=== PATIENT | female | born 1940 | race Caucasian/White ===

== ENCOUNTER 2016-09-02 12:06 | Outpatient (CLI) ==
[2016-09-02 12:35] VITALS: BMI 38.9
== END 2016-09-02 12:07 ==
LOC: AMBL 12:06
PROVIDERS: ATTEND Emergency Medicine
DX: S01.81XA Laceration without foreign body of other part of head, initial encounter (principal); W01.0XXA Fall on same level from slipping, tripping and stumbling without subsequent striking against object, initial encounter

== ENCOUNTER 2016-09-02 12:16 | Emergency (ER) | payer OTHER ==
[2016-09-02 12:35] VITALS: BP 180/116; TEMP 97.7; BMI 38.9
--- NOTE | 2016-09-02 12:41 | ED.PDOC ---
General ED Provider: Dr. PONCE ORONA JR Chief Complaint: Chin Laceration Stated Complaint: had been to br and stubbed toe causing fall-struck chin onto floor--no loc with fall--is alert able to recall event--bleeding controlled at present--has marked edema to both lower legs--has broken lower dentures due to fall. [ End ]30 minutes ago 97.7 103 20 100 180/116 7/10 Time Seen by Physician: 12:39 Mode of Arrival: Stretcher Information Source: Patient Exam Limitations: No limitations Nursing and Triage Documentation Reviewed and Agree: No Review of Systems - Review Of Systems Constitutional: Reports: No symptoms Eyes: Reports: No symptoms Ears, Nose, Mouth, Throat: Reports: No symptoms Respiratory: Reports: No symptoms Cardiac: Reports: No symptoms GI: Reports: No symptoms : Reports: No symptoms Musculoskeletal: Reports: No symptoms Skin: Reports: Bruising, Lesions Neurological: Reports: No symptoms Endocrine: Reports: No symptoms Hematologic/Lymphatic: Reports: No symptoms All Other Systems: Other Past Medical History - Past Medical History Endocrine: Reports: DM 2, Dyslipidemia Cardiovascular: Reports: Hypertension, CHF Respiratory: Reports: None Hematological: Reports: None Gastrointestinal: Reports: GERD Genitourinary: Reports: None Neuro/Psych: Reports: Seizure Musculoskeletal: Reports: None Cancer: Reports: Unknown Last Menstrual Period: hysterectomy - Surgical History General Surgical History: Reports: Hysterectomy - Family History Family History: Reports: Unknown - Social History Smoking Status: Never smoker Hx Substance Use: No Alcohol Screening: None - Immunizations Tetanus Shot up to Date: No Physical Exam - Physical Exam Appearance: Well-appearing Pain Distress: Mild Eyes: BELTRAN Musculoskeletal: No edema (contusion left ring finger) Skin: Warm, Dry, Normal color (laceration left lateral chin) Procedures - Laceration/Wound Repair No standard instances Wound Description: Linear, Irregular Wound Length (cm): 1 Wound Explored: Clean Wound Irrigated: Yes Wound Prep: Hibiclens Anesthesia: Lidocaine Wound Repaired With: Sutures Suture Size and Type: 5-0 Number of Sutures: 2 Layer Closure?: No Sterile Dressing Applied?: Yes Splint Applied?: No Sling Applied?: No Critical Care Note - Critical Care Note Total Time (mins): 0 Course - Course Hematology/Chemistry: 09/02/16 13:00 09/02/16 13:00 Orders, Labs, Meds: Lab Review 09/02/16 13:00 WBC 6.54 RBC 5.05 Hgb 15.1 Hct 47.3 H MCV 93.7 MCH 29.9 MCHC 31.9 RDW Coeff of Flor 13.2 Plt Count 194 Immature Gran % (Auto) 0.3 Neut % (Auto) 67.2 Lymph % (Auto) 21.7 [place] % (Auto) 9.0 Eos % (Auto) 1.5 Baso % (Auto) 0.3 Immature Gran # (Auto) 0.0 Neut # 4.4 Lymph # 1.4 [place] # 0.6 Eos # 0.1 Baso # 0.0 Sodium 139 Potassium 4.2 Chloride 102 Carbon Dioxide 28 Anion Gap 13.2 BUN 18 Creatinine 1.02 Estimated GFR (MDRD) 53.00 BUN/Creatinine Ratio 17.64 Glucose 177 H Calcium 10.4 H Total Bilirubin 0.75 AST 21 ALT 18 Alkaline Phosphatase 89 Total Protein 6.8 Albumin 3.3 L Globulin 3.5 Albumin/Globulin Ratio 0.94 Digoxin < 0.30 L Orders Category Date Time Status CBC W/ AUTO DIFF Stat LAB 09/02/16 13:00 Completed CMP [COMPREHENSIVE METABOLIC PANEL] Stat LAB 09/02/16 13:00 Completed DIGOXIN Stat LAB 09/02/16 13:00 Completed Diphth,Pertuss(Acell),Tet Vac [Boostrix] MEDS 09/02/16 14:19 Discontinued 0.5 ml IM .ONCE ONE Lidocaine HCl/Pf [Lidocaine 1 % Amp 5 ml (Sutures)] MEDS 09/02/16 13:21 Discontinued 5 ml SUBCUT ONCE STA Lidocaine HCl/Pf [Lidocaine 1 % Amp 5 ml (Sutures)] MEDS 09/02/16 13:22 Discontinued 5 ml SUBCUT ONCE STA CT CERVICAL SPINE W/O CONTRAST Stat RADS 09/02/16 12:[address] HEAD W/O CONTRAST Stat RADS 09/02/16 12:40 Completed Medications Discontinued Medications Generic Name Dose Route Start Last Admin Trade Name Freq PRN Reason Stop Dose Admin Diphtheria/Pertussis/Tetanus Vacc 0.5 ml 09/02/16 14:19 09/02/16 14:25 Boostrix IM 09/02/16 14:20 0.5 ml .ONCE ONE Administration Lidocaine HCl 5 ml 09/02/16 13:21 09/02/16 13:32 Lidocaine 1 % Amp 5 Ml (Sutures) SUBCUT 09/02/16 13:22 5 ml ONCE STA Administration Lidocaine HCl 5 ml 09/02/16 13:22 09/02/16 13:33 Lidocaine 1 % Amp 5 Ml (Sutures) SUBCUT 09/02/16 13:23 Not Given ONCE STA Vital Signs: Temp Pulse Resp BP Pulse Ox 09/02/16 12:16 97.7 F 103 H 20 180/116 H 100 Departure - Departure Time of Disposition: 14:21 Disposition: HOME SELF-CARE Discharge Problem: Facial laceration, Head injury due to trauma Instructions: Head Injury (ED), Facial Laceration (ED) Condition: Good Pt referred to PMD for follow-up: Yes Additional Instructions: call PMD for follow up Please call your Family Physician as soon as possible to schedule a follow-up appointment. note digoxin level is low no medication changes made in ER sutures out in 7 days check hourly while awake return if vomiting headache mental changes or fever over 101.0 Allergies/Adverse Reactions: Allergies Penicillins Adverse Reaction (Verified 09/02/16 12:29) Sulfa (Sulfonamide Antibiotics) Adverse Reaction (Verified 09/02/16 12:29)
[2016-09-02 13:08] LABS: BASOPHILS % (AUTO) 0.3 % (0.0-3.0); EOSINOPHILS # (AUTO) 0.1 K/ul (0.0-0.7); EOSINOPHILS % (AUTO) 1.5 % (0.0-7.0); HEMATOCRIT 47.3 % (37.0-47.0); HEMOGLOBIN 15.1 g/dl (12.0-16.0); IMMATURE GRANULOCYTE % (AUTO) 0.3 % (0.0-5.0); LYMPHOCYTES # (AUTO) 1.4 K/uL (0.60-3.4); LYMPHOCYTES % (AUTO) 21.7 (10.0-50.0); MEAN CORPUSCULAR HEMOGLOBIN 29.9 pg (27.0-31.0); MEAN CORPUSCULAR HGB CONC 31.9 (31.8-35.4); MEAN CORPUSCULAR VOLUME 93.7 fl (81.0-99.0); MONOCYTES # (AUTO) 0.6 K/uL (0.4-2.0); NEUTROPHILS # (AUTO) 4.4 K/ul (2.0-6.9); NEUTROPHILS % (AUTO) 67.2; PLATELET COUNT 194 10^3/uL (140-440); RED BLOOD COUNT 5.05 10^6/ul (4.20-5.40); WHITE BLOOD COUNT 6.54 K/ul (4.6-10.2)
[2016-09-02] MEDS ORDERED: LIDOCAINE 1 % AMP 5 ML (SUTURES) SUBCUT STA ×2 (13:21→13:22)
[2016-09-02 13:33] LABS: ALANINE AMINOTRANSFERASE 18 U/L (12-78); ALBUMIN 3.3 g/dL (3.4-5.0); ALBUMIN/GLOBULIN RATIO 0.94; ALKALINE PHOSPHATASE 89 U/L (53-141); ANION GAP 13.2; ASPARTATE AMINO TRANSFERASE 21 U/L (15-37); BILIRUBIN,TOTAL 0.75 mg/dL (0.00-1.20); BLOOD UREA NITROGEN 18 mg/dL (7-18); BUN/CREATININE RATIO 17.64; CALCIUM 10.4 mg/dL (8.2-10.2); CARBON DIOXIDE 28 mmol/L (23-31); CHLORIDE 102 mmol/L (98-107); CREATININE 1.02 mg/dL (0.60-1.30); GLUCOSE 177 mg/dL (82-115); POTASSIUM 4.2 mmol/L (3.5-5.10); SODIUM 139 mmol/L (136-145); TOTAL PROTEIN 6.8 g/dL (5.8-8.1)
--- NOTE | 2016-09-02 13:48 | CT ---
EXAM: CT BRAIN HISTORY: Fall, facial injury TECHNIQUE: CT brain without intravenous contrast. 5-mm axial sections with Reformations. COMPARISON: None FINDINGS: Generalized age-related atrophy. Mild ventriculomegaly likely in part compensatory to the atrophy. Moderate chronic microvascular ischemic change is suggested. There is a tiny sub-centimeter area of low attenuation in the left sub insular space probably representing a focal, chronic infarction or p rominent perivascular space. Low attenuation within the eriberto is likely related to chronic small ves dorinda disease. There is no evidence of recent large vessel distribution ischemic infarction. No subd ural hematoma is identified. No fracture. Visualized paranasal sinuses are clear. IMPRESSION: No acute intracranial process or injury. No fracture identified.
--- NOTE | 2016-09-02 13:49 | CT ---
EXAM: CT cervical spine without contrast. HISTORY: Fall with trauma to chin and broken dental plate COMPARISON: Same date CT head TECHNIQUE: Serial axial images of the cervical spine were obtained from the skull base through the lung apices without contrast. These were viewed in multiple planes. FINDINGS: Vertebral bodies demonstrate normal height, disc space and alignment. There is scattered generalized bone demineralization. There is mild disc space narrowing at C5-C7 with small anterior posterior disc osteophytes. There is minimal facet arthropathy. 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 The odontoid process is unremarkable. The soft tissues are unremarka ble. IMPRESSION: There is no acute compression fracture or subluxation of the cervical spine. 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
[2016-09-02 13:52] LABS: DIGOXIN < 0.30 ng/mL (1.00-2.00)
[2016-09-02] MEDS ORDERED: BOOSTRIX IM ONE (14:19)
== END 2016-09-02 14:35 | disposition home or self-care (01) ==
LOC: ED 12:16
DX: S01.81XA Laceration without foreign body of other part of head, initial encounter (principal); E11.9 Type 2 diabetes mellitus without complications; I10 Essential (primary) hypertension; I50.9 Heart failure, unspecified; E78.5 Hyperlipidemia, unspecified; W19.XXXA Unspecified fall, initial encounter
CPT/HCPCS: 36415; 80053; 80162; 85025; 90471; 99283

== ENCOUNTER 2017-02-05 01:18 | Outpatient (CLI) | END 2017-02-05 01:19 | disposition home or self-care (01) | LOC: AMBL 01:18 | PROVIDERS: ATTEND Internal Medicine Geriatric Medicine | DX: R53.1 Weakness (principal); M25.561 Pain in right knee; W06.XXXA Fall from bed, initial encounter ==

== ENCOUNTER 2017-04-20 10:31 | Outpatient (CLI) | END 2017-04-20 10:32 | disposition home or self-care (01) | LOC: AMBL 10:31 | PROVIDERS: ATTEND Emergency Medicine | DX: Z04.3 Encounter for examination and observation following other accident (principal); W07.XXXA Fall from chair, initial encounter ==

== ENCOUNTER 2018-01-06 15:19 | Outpatient (CLI) | END 2018-01-06 15:35 | disposition short-term general hospital (02) | LOC: AMBL 15:19 | PROVIDERS: ATTEND Emergency Medicine | DX: R53.1 Weakness (principal); M25.50 Pain in unspecified joint; I48.91 Unspecified atrial fibrillation; W19.XXXA Unspecified fall, initial encounter ==

== ENCOUNTER 2018-02-12 08:11 | Outpatient (CLI) | payer OTHER | END 2018-02-12 08:27 | disposition short-term general hospital (02) | LOC: AMBL 08:11 | PROVIDERS: ATTEND Emergency Medicine | DX: R29.898 Other symptoms and signs involving the musculoskeletal system (principal); R26.89 Other abnormalities of gait and mobility; R60.0 Localized edema; I48.91 Unspecified atrial fibrillation; Z86.73 Personal history of transient ischemic attack (TIA), and cerebral infarction without residual deficits ==

== ENCOUNTER 2018-03-22 07:13 | Inpatient (IN) | payer OTHER ==
--- NOTE | 2018-03-22 07:23 | ED.PDOC ---
General ED Provider: Dr. SAW BRADLEY Chief Complaint: Shortness of Air Stated Complaint: Sent by [facility] for evaluation of patient due to increased weakness , SOB and chest wheezing. ALSO chronic LE lymphedema which appears worsened. Patient states" Stefano not sure why I am Here-nurses just stated they were sending me to the ER Time Seen by Physician: 07:21 Mode of Arrival: Walk-In Information Source: Patient Exam Limitations: No limitations, Dementia Primary Care Provider: KITTY RAMSEY Nursing and Triage Documentation Reviewed and Agree: Yes Does patient meet sepsis criteria?: No System Inflammatory Response Syndrome: Not Applicable Sepsis Protocol: For patient's 13 years and over: Temp is 96.8 and below OR 101 and greater Pulse >90 BPM Resp >20/minute Acutely Altered Mental Status Are patient's symptoms suggestive of a new infection, such as: -Pneumonia -Skin, Soft Tissue -Endocarditis -UTI -Bone, Joint Infection -Implantable Device -Acute Abdominal Infection -Wound Infection -Meningitis -Blood Stream Catheter Infection -Unknown Respiratory Complaint Exam - Shortness of Air Complaint/Exam Symptoms Are: Still present Timing: Constant Initial Severity: Mild Current Severity: Mild Character: Reports: Dyspnea at rest, Dyspnea on exertion Aggravating: Reports: Movement, Recumbent position Alleviating: Reports: Upright position Associated Signs and Symptoms: Reports: Wheezing Related History: Reports: Similar episode History of Healthcare-Acquired Pneumonia: No, Lives at assisted Pulmonary Embolism Risk Factors: Reports: None Cardiac Risk Factors: Reports: CHF Pseudomonas Risk Factors: Reports: None Tuberculosis Risk Factors: Reports: None Home Oxygen Use: No Recent Stress Test: No Recent Echo/LV Function: No Respiratory Distress: None Stridor Present: No Tracheal Deviation: No Subcutaneous Emphysema: No Accessory Muscle Use: No Retractions: Not Present Diminished Breath Sounds: Yes Prolonged Expiratory Phase: No Unable to Speak Full Sentences: No Fatigue: Yes Leg Swelling: Yes Suni's Sign Present: No Grunting Respirations: No Kussmaul Respirations: No Differential Diagnoses: CHF, Pulmonary Edema, Other (Atrial Fib ) Review of Systems - Review Of Systems Constitutional: Reports: No symptoms Eyes: Reports: No symptoms Ears, Nose, Mouth, Throat: Reports: No symptoms Respiratory: Reports: No symptoms, Orthopnea, Short of air, Wheezing Cardiac: Reports: No symptoms GI: Reports: No symptoms : Reports: No symptoms Musculoskeletal: Reports: No symptoms Skin: Reports: No symptoms Neurological: Reports: No symptoms Endocrine: Reports: No symptoms Hematologic/Lymphatic: Reports: No symptoms All Other Systems: Reviewed and Negative Past Medical History - Past Medical History Endocrine: Reports: DM 2, Dyslipidemia Cardiovascular: Reports: Hypertension, CHF Respiratory: Reports: None Hematological: Reports: None Gastrointestinal: Reports: GERD Genitourinary: Reports: None Neuro/Psych: Reports: Seizure Musculoskeletal: Reports: None Cancer: Reports: Unknown - Surgical History General Surgical History: Reports: Hysterectomy - Family History Family History: Reports: Unknown - Social History Smoking Status: Never smoker Hx Substance Use: No Alcohol Screening: None Physical Exam - Physical Exam Appearance: Well-appearing, No pain distress, Well-nourished, Obese Ill-appearing: Mild Pain Distress: None Eyes: BELTRAN, EOMI, Conjunctiva clear ENT: Ears normal, Nose normal, Oropharynx normal Respiratory: Airway patent, Breath sounds clear, Breath sounds equal, Respirations nonlabored Cardiovascular: Pulses normal, No rub, No murmur, Irregular rhythm GI/: Soft, No masses, No Organomegaly, Tender (Mid abdomen and LUQ /no guarding or rebound), Bowel sounds hypoactive Musculoskeletal: Normal strength, ROM intact, No calf tenderness, Edema Skin: Warm, Dry, Normal color Neurological: Sensation intact, Motor intact, Reflexes intact, Cranial nerves intact, Alert, Oriented (but slightly confused) Psychiatric: Affect appropriate, Mood appropriate Interpretation - Radiology Interpretation Radiology Interpretation By: Radiologist Exam Interpreted: CXR, CT Scan (Ventral hernia with loop of transverse colon in hernia but not obstructed) Xray Comments: Interstitial edema - EKG Interpretation Time of EKG #1: 07:40 Rhythm: Other (atrial fib) Re-Evaluation - Re-Evaluation Time of Re-Evaluation: 15:00 Status: Improved Vital Signs Stable: Yes (Bell cath inserted to monitor output) Appearance: NAD Lungs: Other (few crackles and wheezes) Skin: Warm and Dry CV: Other (Irreg irreg rate and rhythm) Critical Care Note - Critical Care Note Total Time (mins): 0 Course - Course Hematology/Chemistry: 03/22/18 07:45 03/22/18 07:45 Orders, Labs, Meds: Lab Review 03/22/18 03/22/18 03/22/18 07:45 07:45 07:45 WBC 6.00 RBC 3.45 L Hgb 10.6 L Hct 33.2 L MCV 96.2 MCH 30.7 MCHC 31.9 RDW Coeff of Flor 13.7 Plt Count 201 Immature Gran % (Auto) 0.3 Neut % (Auto) 66.9 Lymph % (Auto) 16.3 [place] % (Auto) 14.7 H Eos % (Auto) 1.5 Baso % (Auto) 0.3 Immature Gran # (Auto) 0.0 Neut # (Auto) 4.0 Lymph # (Auto) 1.0 [place] # (Auto) 0.9 Eos # (Auto) 0.1 Baso # (Auto) 0.0 Sodium 141 Potassium 4.3 Chloride 103 Carbon Dioxide 29 Anion Gap 13.3 BUN 30 H Creatinine 1.45 H Estimated GFR (MDRD) 35.00 BUN/Creatinine Ratio 20.68 Glucose 145 H Lactic Acid Calcium 9.6 Total Bilirubin 1.1 AST 17 ALT 17 Alkaline Phosphatase 89 Troponin I 0.0300 B-Natriuretic Peptide 278 H Total Protein 6.4 Albumin 2.5 L Globulin 3.9 Albumin/Globulin Ratio 0.64 Urine Color Urine Clarity Urine pH Ur Specific [place] Urine Protein Urine Glucose (UA) Urine Ketones Urine Blood Urine Nitrite Urine Bilirubin Urine Urobilinogen Ur Leukocyte Esterase Urine Microscopic WBC Ur Squamous Epith Cells Urine Bacteria 03/22/18 03/22/18 07:45 09:05 WBC RBC Hgb Hct MCV MCH MCHC RDW Coeff of Flor Plt Count Immature Gran % (Auto) Neut % (Auto) Lymph % (Auto) [place] % (Auto) Eos % (Auto) Baso % (Auto) Immature Gran # (Auto) Neut # (Auto) Lymph # (Auto) [place] # (Auto) Eos # (Auto) Baso # (Auto) Sodium Potassium Chloride Carbon Dioxide Anion Gap BUN Creatinine Estimated GFR (MDRD) BUN/Creatinine Ratio Glucose Lactic Acid 8.3 Calcium Total Bilirubin AST ALT Alkaline Phosphatase Troponin I B-Natriuretic Peptide Total Protein Albumin Globulin Albumin/Globulin Ratio Urine Color Yellow Urine Clarity Clear Urine pH 7.0 Ur Specific [place] 1.015 Urine Protein Negative Urine Glucose (UA) Negative Urine Ketones Negative Urine Blood Negative Urine Nitrite Negative Urine Bilirubin Negative Urine Urobilinogen 2.0 Ur Leukocyte Esterase Trace Urine Microscopic WBC 5-10 Ur Squamous Epith Cells 5-10 Urine Bacteria 2+ Orders Category Date Time Status ADMIT PATIENT INPATIENT .TO MEDSURG (MONITORED BED) ADMISSION 03/22/18 09: 55 Active EKG-(ED ONLY) Stat CARDIO 03/22/18 07:34 Completed OXYGEN Routine CARDIO 03/22/18 09:44 Ordered ACTIVITY .BR with BRP CARE 03/22/18 09:45 Active BLOOD GLUCOSE MONITORING 0630,1100,1700,2100 CARE 03/22/18 09:46 Active CATHETER INSERTION AND CARE Q8HR CARE 03/22/18 09:44 Active INTAKE & OUTPUT Q8HR CARE 03/22/18 09:44 Active REMINDER: Ask MD to d/c ronald DAILY CARE 03/22/18 09:45 Active TELEMETRY MONITORING TELE CARE 03/22/18 09:56 Active VITAL SIGNS Q4HR CARE 03/22/18 09:44 Active 2 GRAM SODIUM DIET DIETARY 03/22/18 Lunch Ordered BLOOD CULTURE (ED ONLY) Stat LAB 03/22/18 07:45 Received BNP [B-TYPE NATRIURETIC PEPTIDE] Stat LAB 03/22/18 07:45 Completed CBC W/ AUTO DIFF DAILY@0600 LAB 03/23/18 06:00 Ordered CBC W/ AUTO DIFF DAILY@0600 LAB 03/24/18 06:00 Ordered CBC W/ AUTO DIFF Stat LAB 03/22/18 07:45 Completed CMP [COMPREHENSIVE METABOLIC PANEL] Stat LAB 03/22/18 07:45 Completed COMPREHENSIVE METABOLIC PANEL DAILY@0600 LAB 03/23/18 06:00 Ordered COMPREHENSIVE METABOLIC PANEL DAILY@0600 LAB 03/24/18 06:00 Ordered LACTIC ACID Stat LAB 03/22/18 07:45 Completed TROPONIN I Stat LAB 03/22/18 07:45 Completed UA [URINALYSIS C & S IF INDICATED] Stat LAB 03/22/18 09:05 Completed URINE CULTURE Stat LAB 03/22/18 09:05 Received Furosemide [Lasix] MEDS 03/22/18 08:20 Discontinued 20 mg IVP ONCE STA RESUSCITATION STATUS Routine OTHERS 03/22/18 09:44 Ordered CHEST, 1V AP ONLY Stat RADS 03/22/18 07:[address] ABDOMEN/PELVIS WO CONTRAST Stat RADS 03/22/18 08:22 Completed Medications Discontinued Medications Generic Name Dose Route Start Last Admin Trade Name Freq PRN Reason Stop Dose Admin Furosemide 20 mg 03/22/18 08:20 03/22/18 09:01 Lasix IVP 03/22/18 08:21 20 mg ONCE STA Administration Vital Signs: Temp Pulse Resp BP Pulse Ox 03/22/18 07:14 98.8 F 81 20 152/80 H 93 L Departure - Departure Time of Disposition: 08:30 Disposition: ADMITTED INPATIENT Discharge Problem: CHF (congestive heart failure), Atrial fibrillation, Ventral hernia Condition: Fair Pt referred to PMD for follow-up: Yes (Dr Abdul) IPMP verified?: No Allergies/Adverse Reactions: Allergies Penicillins Adverse Reaction (Verified 03/22/18 07:28) Sulfa (Sulfonamide Antibiotics) Adverse Reaction (Verified 03/22/18 07:28) Home Medications: Ambulatory Orders Alendronate Sodium 70 mg PO WEEKLY 03/22/18 Amantadine HCl [Amantadine] 100 mg PO BID 03/22/18 Aspirin [Adult Low Dose Aspirin EC] 81 mg PO DAILY 03/22/18 Bumetanide 2 mg PO DAILY 03/22/18 Citalopram Hydrobromide [Celexa] 20 mg PO DAILY 03/22/18 Digoxin [Digox] 125 mcg PO DAILY 03/22/18 Felodipine [Felodipine ER] 5 mg PO DAILY 03/22/18 Gabapentin 100 mg PO TID 03/22/18 Hydrocodone Bit/Acetaminophen [[place] 10-325] 1 each PO 12 03/22/18 Magnesium Hydroxide [Milk of Magnesia] 30 ml PO BID PRN 03/22/18 Memantine HCl [Namenda Xr] 28 mg PO DAILY 03/22/18 Metoprolol Tartrate 50 mg PO BID 03/22/18 Pantoprazole Sodium 40 mg PO DAILY 03/22/18 Potassium Chloride 10 meq PO DAILY 03/22/18 Rivaroxaban [Xarelto] 20 mg PO DAILY 03/22/18 Sennosides [Senna] 8.6 mg PO BID 03/22/18 Trazodone HCl 50 mg PO BEDTIME 03/22/18 Disposition Discussed With: Patient
[2018-03-22] MEDS ORDERED: LASIX IVP STA (08:20)
--- NOTE | 2018-03-22 08:33 | DI ---
EXAM: Single view of the chest. History: Dyspnea. Findings: Heart is enlarged. Mild interstitial edema. No pneumothorax and no significant pleural f luid. Atherosclerotic vascular calcifications. No acute osseous abnormalities. Impression: Cardiomegaly with mild interstitial edema
--- NOTE | 2018-03-22 09:04 | CT ---
EXAM: CT abdomen pelvis without contrast HISTORY: Palpable pain COMPARISON: Chest x-ray 2017 TECHNIQUE: Serial axial images of the abdomen pelvis were performed from the lung bases through the inferior pelvis without contrast. These were viewed in multiple planes. FINDINGS: Small right pleural effusion with adjacent consolidation in the right lower lobe. Cardiome diastinal silhouette is mildly enlarged. Evaluation is limited due to lack of contrast. The liver is unremarkable. The adrenal glands are nor mal. The kidneys are unremarkable. The spleen is normal. The pancreas is normal. The gallbladder is not visualized with minimal hazy ground-glass in the region of the gallbladder fossa. The stomach is normal The small bowel in the abdomen pelvis is unremarkable. The colon demonstrates a moderate amount of s tool in the distal colon. There is a small loop of transverse colon within a ventral fat-containing hernia with no definitive changes of obstruction. The hernia demonstrates no significant fluid colle ction or ground-glass. Urinary bladder is distended. The pelvic soft tissues are unremarkable. The osseous structures demonstrate mild degenerative disease of the spine. IMPRESSION: 1. There is a small loop of transverse colon within a ventral abdominal hernia that may represent th e source of patient's palpable pain. There is no definitive evidence of ground-glass, inflammation o r fluid at the site of the hernia. This does not cause obstruction. 2. Small right pleural effusion with adjacent consolidation suggestive of pneumonia. 3. Mild cardiomegaly.
[2018-03-22] MEDS ORDERED: LOVENOX SUBCUT SCH (10:00)
[2018-03-22 11:44] VITALS: BMI 39.2
[2018-03-22] MEDS: SODIUM CHLORIDE 1,000 ML IV SCH (13:56)
[2018-03-22] MEDS ORDERED: DECADRON 4 MG/ML SDV IVP STA (17:11)
[2018-03-22] MEDS: SYMMETREL PO SCH (20:28)
[2018-03-22] MEDS ORDERED: NON-FORMULARY MEDICATION (Amantadine Hcl [Amantadine] 100 MG) PO SCH (21:00)
[2018-03-22] MEDS: DUONEB NEB SCH (22:25)
[2018-03-23] MEDS: DUONEB NEB SCH ×3 (05:15→22:12)
[2018-03-23] MEDS ORDERED: LASIX IVP STA (08:11)
[2018-03-23] MEDS: SYMMETREL PO SCH ×2 (08:56→20:07)
[2018-03-23] MEDS: BUMEX PO SCH (08:56)
[2018-03-23] MEDS: LANOXIN PO SCH (08:56)
[2018-03-23] MEDS: ASPIRIN EC PO SCH (08:56)
[2018-03-23] MEDS: CELEXA PO SCH (08:56)
[2018-03-23] MEDS ORDERED: NON-FORMULARY MEDICATION (Bumetanide [Bumetanide] 2 MG) PO SCH (09:00)
--- NOTE | 2018-03-23 15:15 | HP ---
DATE OF SERVICE: 03/22/18 CHIEF COMPLAINT/HISTORY OF PRESENT ILLNESS: Binta Hines, who is a residential resident, been having problems with the lower extremity edema for which the patient been getting extra dose of Lasix but today morning residential staff noted that she has been more short of breath, wheezing, confusion at time, leg edema. The patient came to the emergency room and the patient was wheezing with exertion noted, aware of the surroundings. Respirations is shallow, afebrile. The patient was seen by Dr. Marcelino in the emergency room. WBC was normal, hgb 10, BUN 13, creatinine 1.45 , BNP is 278, urine negative for the nitrates and leukocyte esterase is trace. Toxicology Dig level was 1.49. Chest x-ray showed the pulmonary congestion. CT abdomen showed the small loop of the transverse colon within the ventral abdominal wall hernia and accumulative stool otherwise no acute findings. At that time the patient was admitted to hospital with acute on chronic heart failure and pulmonary congestion. REVIEW OF SYSTEMS: CONSTITUTIONAL: No fever, no chills. Weakness, tiredness. HEENT: Normal. ENDOCRINE: No weight gain; no weight loss. CVS: No chest pain. No PND, no orthopnea. Shortness of breath. No PND, no orthopnea. RESPIRATORY: Cough, no congestion. No hemoptysis. Wheezing. GI: No nausea, no vomiting. No abdominal pain. No melena. : No hematuria. No polyuria. MUSCULOSKELETAL: No joint swelling. PSYCHIATRIC: Not anxious. No depression. No suicidal thoughts. No homicidal thoughts. SKIN: Intact, no open lesions. PAST MEDICAL HISTORY: CAD CHF Atrial fibrillation Seizure disorder Leg edema Hypothyroidism Endometriosis Anxiety PAST SURGICAL HISTORY: Cataract surgery PERSONAL HISTORY: The patient does not smoke or drink. Partially dependant upon the ADL's, lives at residential. FAMILY HISTORY: Diabetes and Cancer MEDICATIONS: Trazodone Senna Potassium Chloride [place] Namenda Milk of magnesia Metoprolol Gabapentin Felodipine Celexa Bumetanide Aspirin Amantadine Xarelto Pantoprazole Digoxin Alendronate sodium ALLERGIES: Penicillin Sulfa PHYSICAL EXAMINATION: V/S: Blood pressure 130/77, respiratory rate 20, heart rate 80, temperature 98.9 with saturation 93% on room air. HEENT: Atraumatic, normocephalic. No scleral icterus. Pallor positive. Mucosa dry. NECK: Supple. No JVD, no bruit. No lymphadenopathy. No thyromegaly. HEART: S1, S2 normal. No murmur. No cyanosis or clubbing. No ascites. LUNGS: Decreased and basilar crackles. Clear to auscultation. No rales or rhonchi. ABDOMEN: Soft, nontender. Bowel sounds are active. No CVA tenderness. No rigidity or guarding. EXTREMITIES: 2+ leg edema and lymphedema. No cyanosis or clubbing MUSCULOSKELETAL: Normal joints, no swelling. NEUROLOGIC: The patient is awake and alert SKIN: Intact; no open lesions. LYMPHATIC: No lymph nodes palpable. LABS: WBC 6.0, hgb 10.6, hct 33.2, plt count 201, sodium 141, potassium 4.3, chloride 103, bicarb 23, BUN 13, creatinine 1.45, BNP 278 ASSESSMENT: 1. Acute on chronic heart failure 2. COPD exacerbation 3. CAD 4. CHF 5. Atrial fibrillation 6. Dependent leg edema 7. Anxiety PLAN: 1. Admit patient to regular floor 2. Lasix IV push 3. Daily I&O's 4. Continue the home medication 5. Echocardiogram 6. IV fluids at 40ml per hour 7. Digoxin level TIME SPENT: MORE THAN 75 minutes MTDD
[2018-03-24] MEDS: DUONEB NEB SCH ×3 (05:19→22:48)
[2018-03-24] MEDS ORDERED: K-DUR PO STA (08:16)
[2018-03-24] MEDS: SYMMETREL PO SCH ×2 (08:44→20:46)
[2018-03-24] MEDS: LANOXIN PO SCH (08:45)
[2018-03-24] MEDS: BUMEX PO SCH (08:45)
[2018-03-24] MEDS: CELEXA PO SCH (08:45)
[2018-03-24] MEDS: ASPIRIN EC PO SCH (08:45)
--- NOTE | 2018-03-24 10:20 | ECHO2D ---
Date of Exam: 03/23/18 Ordering Physician: DR. RODDY GRAHAM Room #: 115 Reason for Echo: CHF, HYPERTENSION M-Mode Normal Adult Results LV Dimensions Normal Adult Results AoV Opening excursions >1.6 >1.6 LVEDD-base- 3.5-5.8 5.0 Ao root dimensions 2.0-3.7 3.0 LVESD-base- 3.1-4.6 L. Atrium dimensions 1.9-3.8 5.6 Post. Wall thickness 0.8-1.1 1.2 IV septum (thickness) 0.7-1.2 1.2 Post. Wall excursion 0.72-1.3 NORMAL Septal motion NORMAL Systolic motion R. Ventricular cavity 1.5-2.0 NORMAL LVEF 60% 50% Paradoxical septal wall motion NORMAL 2-D : 2-D M Mode Echocardiogram was performed using apical four chamber and left parasternal long and short axis views. Mitral, tricuspid and aortic valves appear to be normal. Contractility of the left ventricle seems to be normal, so is the cavity size. ENLARGED LEFT ATRIAL CAVITY SIZE. Aortic root appears to be normal. There is no pericardial effusion. There is no thrombus noted in the left ventricular or left aortic cavity. No mitral valve prolapse noted. M-MODE: MV: NORMAL AV: NORMAL TV: NORMAL PV: CHAMBER SIZE: MARKEDLY ENLARGED LEFT ATRIAL CAVITY WALL MOTION: NORMAL PERICARDIUM: NORMAL INTERPRETATION: 1. BORDERLINE LEFT VENTRICULAR HYPERTROPHY 2. ENLARGED LEFT ATRIAL CAVITY 3. NORMAL LEFT VENTRICULAR CONTRACTILITY 4. NORMAL VALVES MTDD
[2018-03-24] MEDS: SODIUM CHLORIDE 1,000 ML IV SCH (15:09)
[2018-03-24] MEDS ORDERED: NON-FORMULARY MEDICATION (Rivaroxaban [Xarelto] 20 MG) PO SCH (16:45)
[2018-03-24] MEDS ORDERED: XARELTO PO SCH (17:00)
[2018-03-24] MEDS ORDERED: MILK OF MAGNESIA PO PRN (17:00)
[2018-03-24] MEDS ORDERED: ZOFRAN 4 MG/2 ML IVP PRN (17:18)
[2018-03-24] MEDS ORDERED: LOPRESSOR IVP STA ×2 (17:18)
[2018-03-24] MEDS ORDERED: LOPRESSOR ONE ×2 (17:23→17:25)
[2018-03-24] MEDS ORDERED: SODIUM CHLORIDE 1,000 ML IV SCH (17:30)
[2018-03-24] MEDS ORDERED: CARDIZEM ONE (17:51)
--- NOTE | 2018-03-24 18:54 | CT ---
Exam: CT of the abdomen and pelvis without contrast History: Vomiting Technique: [address] of the abdomen and pelvis without intravascular contrast FINDINGS: Small bilateral pleural effusions with adjacent atelectasis. Consolidative change of the medial right lung base slightly improved from 03/22/2018. No significant liver abnormality. The adren als, pancreas and spleen are unremarkable. The stomach and hiatus are unremarkable.Prior cholecystect mira. Kidneys and proximal collecting system are unremarkable. Atherosclerotic calcification of the ao rta without aneurysm. The appendix is not seen. Bowel loops demonstrate normal caliber. No inflamato ry change seen in the mesentery or retroperitoneum. There is a 2.8 cm para umbilical hernia defect co ntaining small intestine loops without obstruction or inflammation. Prior hysterectomy. Bell catheter decompresses the urinary bladder. No pelvic fat inflammation or free pelvic fluid. No acute findings of the skeleton. Impression: 1. No inflammatory process, bowel or urinary obstruction is seen. 2. Medial right lung base consolidative change slightly improved from 03/22/2018. 3. Stable, intestine containing ventral abdominal hernia without evidence of obstruction..
[2018-03-24] MEDS: NEURONTIN PO SCH (20:46)
[2018-03-24] MEDS: SENNA PO SCH (20:46)
[2018-03-24] MEDS ORDERED: LOPRESSOR PO SCH (21:00)
[2018-03-24] MEDS ORDERED: DESYREL PO SCH (21:00)
[2018-03-25] MEDS: DUONEB NEB SCH (05:04)
[2018-03-25 06:27] VITALS: BP 137/85; TEMP 98.8
[2018-03-25] MEDS ORDERED: LOPRESSOR PO SCH (08:00)
[2018-03-25] MEDS ORDERED: MICRO-K CAP PO SCH (08:00)
[2018-03-25] MEDS ORDERED: PLENDIL PO SCH (09:00)
[2018-03-25] MEDS ORDERED: NAMENDA PO SCH (09:00)
[2018-03-25] MEDS ORDERED: PROTONIX PO SCH (09:00)
[2018-03-25] MEDS ORDERED: NON-FORMULARY MEDICATION (Memantine Hcl [Namenda Xr] 28 MG) PO SCH (09:00)
[2018-03-25] MEDS ORDERED: NON-FORMULARY MEDICATION (Potassium Chloride [Potassium Chloride] 10 MEQ) PO SCH (09:00)
[2018-03-25] MEDS: BUMEX PO SCH (09:43)
[2018-03-25] MEDS: LANOXIN PO SCH (09:43)
[2018-03-25] MEDS: SENNA PO SCH (09:43)
[2018-03-25] MEDS: NEURONTIN PO SCH (09:43)
[2018-03-25] MEDS: SYMMETREL PO SCH (09:44)
[2018-03-25] MEDS: CELEXA PO SCH (09:44)
[2018-03-25] MEDS: ASPIRIN EC PO SCH (09:44)
--- NOTE | 2018-03-25 11:00 | PN ---
DATE OF SERVICE: 03/24/18 SUBJECTIVE: The patient was admitted with acute on chronic heart failure. The patient was given the Lasix and with the given Lasix the patient's wheezing, cough and congestion is better. She says that she did not have the bowel movement yet. She was able to get up and sit in the chair today. REVIEW OF SYSTEMS: CONSTITUTIONAL: No fever, no chills. HEENT: Normal. ENDOCRINE: No weight gain, no weight loss. CVS: No angina symptoms. No CHF symptoms. No palpitations. No atypical chest pain for CAD. No shortness of breath. No PND, no orthopnea. RESPIRATORY: No cough, no hemoptysis. GI: No nausea, no vomiting. No abdominal pain. : No hematuria. No polyuria. MUSCULOSKELETAL: No joint swelling. PSYCHIATRIC: Not anxious. No depression. No suicidal thoughts. No homicidal thoughts. SKIN: Intact. No rash. PHYSICAL EXAMINATION: V/S: Blood pressure 129/72, respiratory rate 20, heart rate 94, temperature 98.1 with saturation 27%. HEENT: Normocephalic, atraumatic. Mucosa dry, Pallor positive. No icterus. NECK: Supple. No JVD, no carotid bruit. No lymphadenopathy. LUNGS: Decreased and basilar crackles. Clear to auscultation. No rales or rhonchi. HEART: S1, S2 normal. No S3. No murmur, gallop or regurgitation. ABDOMEN: Soft, nontender. Bowel sounds active. No rigidity. No rebound or guarding. No CVA tenderness. EXTREMITIES: No cyanosis, clubbing. 1+ edema which the patient does have a lot of lymphedema. MUSCULOSKELETAL: No joint swelling. NEUROLOGIC: Awake, alert. No focal deficit. LYMPHATIC: No lymph nodes palpable. SKIN: Intact. LABS: Sodium 140, potassium 4.4, chloride 103, bicarb 28, BUN 24, creatinine 1.05, glucose 161, WBC 9.01, hgb 10.3, hct 32.6, plt count 254 ASSESSMENT: 1. Acute on chronic heart failure 2. Leg edema 3. Atrial fibrillation, the patient is not on any blood thinners because of recurrent falls and history of seizures 4. Endometriosis 5. Anxiety 6. Hyperthyroidism PLAN: 1. Continue Bumex 2. Digoxin 3. No IV fluids at this time 4. Daily I&O's TIME SPENT: More than 35 minutes MTDD
--- NOTE | 2018-03-25 11:32 | PN ---
DATE OF SERVICE: 03/23/18 SUBJECTIVE: The patient was admitted from the emergency room for the acute on chronic heart failure. The patient did have a good urine output yesterday after getting the Lasix, 1200 with result of negative 529. The patient is supposed to get an echocardiogram. The patient is not wheezing much today. REVIEW OF SYSTEMS: CONSTITUTIONAL: No fever, no chills. HEENT: Normal. ENDOCRINE: No weight gain, no weight loss. CVS: No angina symptoms. No CHF symptoms. No palpitations. No atypical chest pain for CAD. No shortness of breath. No PND, no orthopnea. RESPIRATORY: No cough, no hemoptysis. GI: No nausea, no vomiting. No abdominal pain. : No hematuria. No polyuria. MUSCULOSKELETAL: No joint swelling. PSYCHIATRIC: Not anxious. No depression. No suicidal thoughts. No homicidal thoughts. SKIN: Intact. No rash. PHYSICAL EXAMINATION: V/S: blood pressure 132/76, respiratory rate 12, heart rate 87, temperature 98.7 with saturation 93%. HEENT: Normocephalic, atraumatic. Mucosa dry. Pallor positive. No icterus. NECK: Supple. No JVD, no carotid bruit. No lymphadenopathy. LUNGS: Decreased and basilar crackles. Clear to auscultation. No rales or rhonchi. HEART: S1, S2 normal. No S3. No murmur, gallop or regurgitation. ABDOMEN: Soft, nontender. Bowel sounds active. No rigidity. No rebound or guarding. No CVA tenderness. EXTREMITIES: No cyanosis, clubbing. 1+ edema, lymphedema MUSCULOSKELETAL: No joint swelling. NEUROLOGIC: Awake, alert. No focal deficit. LYMPHATIC: No lymph nodes palpable. SKIN: Intact. LABS: WBC 5.30, hgb 10.0, hct 31.3, plt count 218, sodium 141, potassium 4.1, chloride 105, bicarb 25, BUN 28, creatinine 1.19 and glucose 163. ASSESSMENT: 1. Acute on chronic heart failure 2. Anemia 3. Hypertension 4. Dyslipidemia 5. Leg edema 6. Atrial fibrillation 7. CAD 8. CHF 9. Hypothyroidism 10.Anxiety PLAN: 1. Continue Lasix 2. Daily I&O's 3. Bumex 2mg daily 4. Lasix 5. Digoxin 6. Iv fluids TIME SPENT: More than 35 minutes MTDD
[2018-03-25] MEDS ORDERED: NORCO 10-325 PO SCH (12:00)
--- NOTE | 2018-03-25 14:07 | PCM.HOSP ---
- Initial Hospital Care [id number] 70 Minutes Bedside ([id number]): 03/22 - Subsequent Care [id number] 35 Minutes per Day ([id number]): 03/23. 03/24 - Hospital Discharge [id number] More than 30 Minutes ([id number]): 03/25
[2018-03-25] MEDS ORDERED: CARDIZEM PO ONE (17:03)
[2018-03-29] MEDS ORDERED: FOSAMAX PO SCH (09:00)
--- NOTE | 2018-03-31 14:07 | DS ---
DATE OF SERVICE: 03/25/18 FINAL DIAGNOSIS: 1. ACUTE ON CHRONIC HEART FAILURE 2. INTERSTITIAL PULMONARY EDEMA 3. ATRIAL FIBRILLATION ON XARELTO 4. CAD 5. TYPE 2 DIABETES MELLITUS 6. DYSLIPIDEMIA 7. HYPERTENSION 8. CHRONIC KIDNEY DISEASE 9. CHRONIC LYMPHADEMA OF BILATERAL LOWER EXTREMITIES 10. GERD 11. DEMENTIA 12. TIA 13. SEIZURE 14. DEPRESSION 15. ANXIETY 16. MULTILEVEL DJD 17. HYSTERECTOMY DISCHARGE INSTRUCTIONS: 1. Followup appointment - Dr. Abdul will follow this patient during usual group home rounds in approximately one week. 2. V/S daily 3. Weekly weights 4. Intake and output q.shift 5. May remove Bell cath on 03/27/18 MEDICATIONS AT DISCHARGE: Fosamax Amantadine Aspirin Bumex Celexa Digoxin Felodipine Neurontin [place] Milk of Magnesia NEW PRESCRIPTIONS: Keflex 500 mg p.o. b.i.d. times 7 days Duonebs t.i.d. times one week then b.i.d. p.r.n. wheezing, shortness of breath DIET INSTRUCTIONS: Cardiac and Healthy Diet. Consistent carbs-NAB/Regular texture-Regular consistency Rod Straightener to consult to provide for optimal/individualized nutritional needs ACTIVITY: May participate in group home activity program as tolerated PT/OT please evaluate and treat as indicated Keep feet and legs elevated as frequently as possible SMOKING: N/A DISEASE SPECIFIC EDUCATION: CHF, salt diet, fluid overload and heart failure discussed, verbalized understanding. HOSPITAL COURSE: This is a 77-year-old female with multiple medical problems, who resides at the group home was sent to the emergency room for shortness of breath, cough and congestion found to be in acute heart failure with elevated BNP, pulmonary congestion per chest x-ray. She was given a dose of Lasix 20 mg IV push times two days. The patient had a good amount of diuresis, started feeling better, less wheezing. No cough, no PND, no orthopnea. The patient did have suprapubic tenderness. CT abdomen showed ventral hernia but no obstruction was noted. Echocardiogram was done which showed LVH and right atrial enlargement. Normal ejection fraction. The patient meanwhile was doing well, had constipation and mag citrate was given. She did not have any problems during the hospital stay. As the patient was doing well, did not have any complaints during the stay and shortness of breath and wheezing better, the patient was discharged home. TIME SPENT: MORE THAN 65 MINUTES MTDRoberto
== END 2018-03-25 12:15 | DRG 948 ==
LOC: ED 07:13 → MEDSURG B 10:04
PROVIDERS: ADMIT Emergency Medicine; ATTEND Emergency Medicine
DX: R53.1 Weakness (principal); J81.1 Chronic pulmonary edema; J44.1 Chronic obstructive pulmonary disease with (acute) exacerbation; I89.0 Lymphedema, not elsewhere classified; I50.9 Heart failure, unspecified; I48.91 Unspecified atrial fibrillation; I25.10 Atherosclerotic heart disease of native coronary artery without angina pectoris; I10 Essential (primary) hypertension; R06.00 Dyspnea, unspecified; R06.2 Wheezing; E11.9 Type 2 diabetes mellitus without complications; E05.90 Thyrotoxicosis, unspecified without thyrotoxic crisis or storm; E78.5 Hyperlipidemia, unspecified; N18.9 Chronic kidney disease, unspecified; K21.9 Gastro-esophageal reflux disease without esophagitis; K43.9 Ventral hernia without obstruction or gangrene; F03.90 Unspecified dementia, unspecified severity, without behavioral disturbance, psychotic disturbance, mood disturbance, and anxiety; F41.8 Other specified anxiety disorders
CPT/HCPCS: 36415; 80053; 80162; 81001; 82550; 82607; 82728; 82746; 82962; 83540; 83550; 83605; 83880; 84466; 84484; 85025; 85045; 87040; 87081; 87086; 93005; 93010; 94640; 96374; 97802; 99284

== ENCOUNTER 2018-03-26 16:07 | Outpatient (CLI) | END 2018-03-26 16:25 | disposition short-term general hospital (02) | LOC: AMBL 16:07 | PROVIDERS: ATTEND Internal Medicine Geriatric Medicine | DX: R06.03 Acute respiratory distress (principal); R60.0 Localized edema; R53.1 Weakness; E11.9 Type 2 diabetes mellitus without complications; I10 Essential (primary) hypertension; Z86.73 Personal history of transient ischemic attack (TIA), and cerebral infarction without residual deficits ==

== ENCOUNTER 2018-04-09 00:06 | Outpatient (CLI) | END 2018-04-09 00:27 | disposition short-term general hospital (02) | LOC: AMBL 00:06 | PROVIDERS: ATTEND Family Medicine | DX: I95.9 Hypotension, unspecified (principal); R53.1 Weakness; R60.9 Edema, unspecified ==

== ENCOUNTER 2018-10-18 09:11 | Outpatient (CLI) | END 2018-10-18 09:12 | disposition home or self-care (01) | LOC: NONPT 09:11 | PROVIDERS: ATTEND Nurse Practitioner Family | DX: N19 Unspecified kidney failure (principal) | CPT/HCPCS: 81001; 82043; 82570; 84156; 87086 ==

== ENCOUNTER 2018-10-21 09:19 | Outpatient (CLI) | END 2018-10-21 09:20 | disposition home or self-care (01) | LOC: NONPT 09:19 | PROVIDERS: ATTEND Family Medicine | DX: N19 Unspecified kidney failure (principal) | CPT/HCPCS: 81001; 82043 ==

== ENCOUNTER 2018-11-22 10:07 | Outpatient (CLI) | payer OTHER | END 2018-11-22 10:08 | disposition home or self-care (01) | LOC: NONPT 10:07 | PROVIDERS: ATTEND Nurse Practitioner Family | DX: R30.0 Dysuria (principal); R82.90 Unspecified abnormal findings in urine | CPT/HCPCS: 81001; 87086 ==

== ENCOUNTER 2018-11-23 13:50 | Outpatient (CLI) | payer OTHER | END 2018-11-23 13:51 | disposition home or self-care (01) | LOC: NONPT 13:50 | PROVIDERS: ATTEND Family Medicine | DX: N39.0 Urinary tract infection, site not specified (principal) | CPT/HCPCS: 81001; 87086; 87186 ==

== ENCOUNTER 2018-11-30 15:31 | Outpatient (CLI) | END 2018-11-30 15:48 | disposition short-term general hospital (02) | LOC: AMBL 15:31 | PROVIDERS: ATTEND Internal Medicine | DX: R41.82 Altered mental status, unspecified (principal); N39.0 Urinary tract infection, site not specified; R25.1 Tremor, unspecified ==

== ENCOUNTER 2019-03-30 12:48 | Outpatient (CLI) | END 2019-03-30 12:49 | disposition home or self-care (01) | LOC: NONPT 12:48 | PROVIDERS: ATTEND Family Medicine | DX: E11.40 Type 2 diabetes mellitus with diabetic neuropathy, unspecified (principal) | CPT/HCPCS: 85025 ==